=== PATIENT | female | born 1950 | race Caucasian/White ===

== ENCOUNTER 2023-08-22 08:39 | Outpatient (CLI) | payer MEDICARE | END 2023-08-22 08:40 | disposition home or self-care (01) | LOC: SCSMRI 08:39 | PROVIDERS: ATTEND Psychiatry & Neurology Neurology | DX: R41.3 Other amnesia (principal); G93.9 Disorder of brain, unspecified; R90.82 White matter disease, unspecified | CPT/HCPCS: 70553 ==

== ENCOUNTER 2024-07-23 12:28 | Outpatient (CLI) | payer MEDICARE, OTHER | END 2024-07-23 12:29 | disposition home or self-care (01) | LOC: SCSMRI 12:28 | PROVIDERS: ATTEND Psychiatry & Neurology Neurology | DX: R93.89 Abnormal findings on diagnostic imaging of other specified body structures (principal) | CPT/HCPCS: 36415; 70553; 76376; 82565 ==